=== PATIENT | male | born 1960 | race Caucasian/White ===

== ENCOUNTER 2018-11-07 18:16 | Emergency (ER) | payer SELFPAY ==
[~2018-11-07 18:16] MED LIST: ISOVUE-370 76%-LOCM 1 ML ONE
[2018-11-07 18:59] LABS: Mean Corpuscular HGB CONC 32.8 g/dL (32.0-36.0); Mean Corpuscular Hemoglobin 30.3 pg (27.0-31.0); Mean Corpuscular Volume 92.3 fL (78.0-98.0); Mean Platelet Volume 6.6 fL (7.4-10.4); Platelet Count 198 thou/uL (130-400); RBC Distribution Width 11.7 % (11.5-14.5); Red Blood Cell (RBC) Count 4.64 mill/uL (4.70-6.10); White Blood Cell (WBC) Count 16.7 thou/uL (4.8-10.8)
[2018-11-07 19:15] LABS: Band 20 % (5-11); Lymphocytes 2 % (21-51); MDiff Complete? YES; Monocytes 5 % (0-10); Neutrophil 73 % (42-75); Platelet Morphology Comment Appears Adequate; RBC Morphology Normal; Toxic Granulation SLIGHT; Vacuoles SLIGHT
[2018-11-07 19:17] LABS: ALT (SGPT) 74 U/L (8-55); AST (SGOT) 112 U/L (5-34); Albumin 3.7 g/dL (3.5-5.0); Alkaline Phosphatase 164 U/L (40-150); Anion Gap 12 mmol/L (10-20); BUN (Urea Nitrogen) 8 mg/dL (8.4-25.7); Bilirubin, Total 2.5 mg/dL (0.2-1.2); Calc. Creatinine Clearance 0 mL/min (70-130); Calcium 9.1 mg/dL (7.8-10.44); Carbon Dioxide 25 mmol/L (22-29); Chloride 101 mmol/L (98-107); Estimated GFR-MDRD Greater than 90; Globulin 3.5 g/dL (2.4-3.5); Glucose 116 mg/dL (70-105); Potassium 3.5 mmol/L (3.5-5.1); Protein, Total 7.2 g/dL (6.0-8.3); Sodium 134 mmol/L (136-145)
--- NOTE | 2018-11-07 20:07 | CT ---
CT Abdomen Pelvis W Con: 11/07/2018 7:23 PM CLINICAL INFORMATION: Nausea and vomiting COMPARISON: None. TECHNIQUE: Multiple contiguous axial images were obtained and a CT of the abdomen and pelvis with IV contrast. Oral contrast was administered. Coronal reformats were performed. FINDINGS: Lower Chest: Granulomatous changes in the right lung base. Abdomen: Liver: Multiple calcified granulomas. Bile Ducts: Normal caliber. Gallbladder: No calcified gallstones. Normal caliber wall. Pancreas: within normal limits. Spleen: Multiple calcified granulomas. Adrenals: within normal limits. Kidneys: within normal limits. Pelvis: Reproductive Organs: No pelvic masses. Ureters: within normal limits. Bladder: within normal limits. Peritoneum: No ascites or free air, no fluid collection. Bowel: The small bowel is normal in caliber. Moderate stool retention is seen in the rectal vault. Mesentery and Retroperitoneum: No enlarged mesenteric or retroperitoneal lymph nodes. Vessels: Atherosclerotic calcifications. Abdominal Wall: Large 12 cm ventral hernia containing one wall of nonobstructed colon. Bones: Degenerative changes in the spine. IMPRESSION: 1. No evidence of acute intraabdominal\pelvic abnormality. 2. Moderate stool retention in the rectal vault. 3. Ventral hernia
[2018-11-07 22:21] LABS: Bilirubin Small (Negative); Blood, Urine Negative (Negative); Clarity CLEAR (Clear); Glucose, Urine (Dipstick) Negative (Negative); Leukocyte Negative (Negative); Nitrite Negative (Negative); Protein, Urine (Dipstick) Negative (Neg-Trace)
[2018-11-07 22:22] LABS: Specific Gravity, Urine Greater than 1.060 (1.002-1.036)
[2018-11-07] MEDS ORDERED: diphenhydrAMINE 25 MG CAP ONE (22:22)
== END 2018-11-08 00:32 | disposition home or self-care (01) ==
LOC: ERS 18:16
DX: R74.8 Abnormal levels of other serum enzymes (principal); F41.9 Anxiety disorder, unspecified; F32.9 Major depressive disorder, single episode, unspecified; F17.210 Nicotine dependence, cigarettes, uncomplicated; I25.2 Old myocardial infarction; I10 Essential (primary) hypertension; Z79.899 Other long term (current) drug therapy; Z79.82 Long term (current) use of aspirin; Z79.891 Long term (current) use of opiate analgesic
CPT/HCPCS: 36415; 74177; 80053; 81003; 85025; 94760; Q0163; Q9966

== ENCOUNTER 2018-11-12 17:32 | Inpatient (IN) | payer SELFPAY ==
[2018-11-12 18:07] LABS: #Lymphocytes 0.7 thou/uL (1.20-3.40); #Monocytes 0.5 thou/uL (0.11-0.59); #Neutrophils 7.3 thou/uL (1.40-6.50); %Basophils 0.1 % (0.0-1.0); %Eosinophils 0.1 % (0.0-10.0); %Lymphocytes 8.4 % (21.0-51.0); %Monocytes 6.1 % (0.0-10.0); %Neutrophils 85.4 % (42.0-75.0); Hemoglobin 14.4 g/dL (14.0-18.0); Mean Corpuscular HGB CONC 33.4 g/dL (32.0-36.0); Mean Corpuscular Hemoglobin 30.3 pg (27.0-31.0); Mean Corpuscular Volume 90.9 fL (78.0-98.0); Mean Platelet Volume 6.7 fL (7.4-10.4); Platelet Count 175 thou/uL (130-400); RBC Distribution Width 11.6 % (11.5-14.5); Red Blood Cell (RBC) Count 4.73 mill/uL (4.70-6.10); White Blood Cell (WBC) Count 8.6 thou/uL (4.8-10.8)
[2018-11-12 18:30] LABS: ALT (SGPT) 73 U/L (8-55); AST (SGOT) 118 U/L (5-34); Albumin 3.7 g/dL (3.5-5.0); Alkaline Phosphatase 164 U/L (40-150); Anion Gap 16 mmol/L (10-20); BUN (Urea Nitrogen) 7 mg/dL (8.4-25.7); Bilirubin, Total 4.3 mg/dL (0.2-1.2); Calc. Creatinine Clearance 0 mL/min (70-130); Calcium 9.1 mg/dL (7.8-10.44); Carbon Dioxide 23 mmol/L (22-29); Chloride 101 mmol/L (98-107); Estimated GFR-MDRD Greater than 90; Globulin 3.5 g/dL (2.4-3.5); Glucose 97 mg/dL (70-105); Lipase 18 U/L (8-78); Protein, Total 7.2 g/dL (6.0-8.3); Sodium 137 mmol/L (136-145)
[2018-11-12] MEDS ORDERED: Morphine 4 MG/ML VIAL ONE ×2 (18:37→20:56)
--- NOTE | 2018-11-12 19:47 | ULT ---
ULTRASOUND ABDOMEN: (RIGHT UPPER QUADRANT) DATE: 11/12/2018 HISTORY: 58-year-old male with nausea, vomiting, and abdominal pain FINDINGS: Gallbladder:Distended. Contains sludge. No gallstone identified. No mural thickening, pericholecystic fluid, or sonographic Dasilva sign. Common duct: Dilated to 11 mm caliber. In retrospect, on CT of 11/07/2018, there is an approximately 1 cm soft tissue density mass within the inferior aspect of the common bile duct lumen. This could either represent a noncalcified gallstone (choledocholithiasis), or less likely sludge ball or neopla sm. Liver:Parenchymal echogenicity normal. Diffuse mild dilation of intrahepatic biliary radicles. Pancreas:Completely obscured by shadowing from bowel gas. Right kidney:No hydronephrosis IMPRESSION: evidence for partial obstruction of distal common bile duct, probably with choledocholithiasis
[2018-11-12] MEDS ORDERED: Levofloxacin 500 mg/D5W 100 ml Premix Bag ONE (20:56)
[2018-11-12] MEDS ORDERED: Lorazepam 2 MG/ML VIAL SLOW IVP PRN (22:37)
[2018-11-12] MEDS ORDERED: hydrALAZINE 20 MG/ML VIAL SLOW IVP PRN (22:37)
[2018-11-12] MEDS ORDERED: Ondansetron PF 4 MG/2 ML Vial IVP PRN (22:37)
[2018-11-12] MEDS ORDERED: Ondansetron ODT 4 MG TAB PO PRN (22:37)
[2018-11-12] MEDS ORDERED: Fleet Enema 133 ML BOT PR PRN (22:42)
[2018-11-12] MEDS ORDERED: Ketorolac Tromethamine 30 MG/ML VIAL IVP PRN (22:48)
[2018-11-12] MEDS ORDERED: Acetaminophen 1,000 MG in Premix Bag 1 BAG IVPB PRN (23:15)
[2018-11-12] MEDS ORDERED: Sodium Chloride 0.9% (PF) 10 ML VIAL FS PRN (23:21)
--- NOTE | 2018-11-12 23:25 | RAD ---
RADIOGRAPH CHEST 1 VIEW: DATE: 11/12/2018 HISTORY: 58-year-old male for preoperative clearance FINDINGS: There is no airspace density, pulmonary edema, or pneumothorax. The lateral costophrenic angles are n ot effaced. There are sternotomy wires. The cardiac shadow is obscured inferior to the elevated left hemidiaphragm. IMPRESSION: No acute pulmonary findings.
--- NOTE | 2018-11-12 23:27 | HP ---
HISTORY OF PRESENT ILLNESS: Benito Bond is a 58-year-old male, recently moved from [place]. He lives with family. He has left hemiparesis from previous stroke and is nonambulatory, although he transfers independently to wheelchair. He does not use a walker or a cane. He is essentially nonambulatory except able to transfer independently. He has ongoing tobacco use, half pack a day. For the past week, he has been experiencing upper abdominal pain, nausea, and vomiting. The patient had a CAT scan of the abdomen and pelvis on November 07, 2018, as an outpatient and aside from retained stool in the rectum, there were no significant findings. Bile duct caliber was recorded as normal. This study was ordered by Dr. Saima Najera. On that same day, he had labs demonstrated a bilirubin of 2.5. Today, his bilirubin is 4.3. Alkaline phosphatase today is 164 and was 164 on 11/07/2018, the day of his CAT scan. The patient underwent a gallbladder ultrasound noting gallstones and 11 mm bile duct. Acknowledging this, the CAT scan was re-read by Dr. Suresh Pratt, and choledocholithiasis noted on his CAT scan and his CAT scan in retrospection. ALLERGIES: NONE. SOCIAL HISTORY: Tobacco 1/2 pack per day more or less. Alcohol, none. MEDICATIONS: Medications for blood pressure, although medications not reconciled. Medications on the ER record include; 1. Celexa 10 mg a day. 2. Prilosec 10 mg a day. 3. Amitriptyline 10 mg a day. 4. Aspirin 81 mg a day. 5. Plavix 75 mg a day. 6. Lisinopril 10 mg a day. 7. Finasteride 5 mg a day. 8. Metoprolol 25 mg a day. 9. Protonix 40 mg a day. 10. Extended release morphine tablets 30 mg twice a day. 11. Gabapentin 300 mg 3 times a day. 12. Carafate 10 mL orally 4 times a day. 13. Flomax 0.4 mg a day. 14. [place] 5/325 t.i.d. as needed. 15. Lactulose 10 g, 15 mL orally 3 times a day. PAST SURGICAL HISTORY: Coronary artery bypass grafting in 2013 after myocardial infarction performed in [place]. He has not had any cardiology follows since that time. Apparently, he had a stroke with left hemiparesis in 2013, had a PEG tube suffering dislodgement, peritonitis requiring laparotomy in midline. During the hospitalization, he required a tracheostomy. He has a ventral hernia as a consequence. Daughter reports that 6 months ago, he had a left lung what sounds to be a decortication. PAST MEDICAL HISTORY: Hypertension, stroke with a left hemiparesis, mobility as described above. REVIEW OF SYSTEMS: Ten-point noncontributory. Never has had a colonoscopy. Denies dyspnea, chest pain, angina. PHYSICAL EXAMINATION: VITAL SIGNS: Weight 98 kg estimated, blood pressure 112/67, heart rate 91, respirations 18, temperature 98.2 degrees. HEAD, EARS, EYES, NOSE, AND THROAT: Unremarkable. LUNGS: Clear to auscultation. No wheezing. CARDIAC: Regular rate and rhythm. ABDOMEN: Soft, tenderness in his epigastric right upper quadrant, mild. Midline ventral hernia with a wide-mouth defect. Thinned out skin overlying. Scar from the tracheostomy. EXTREMITIES: Unremarkable. Left hemiparesis. LABORATORY DATA: White count 8.6, hemoglobin 14, platelet count 175,000. ASSESSMENT AND PLAN: 1. Choledocholithiasis, cholecystitis, cholelithiasis. We would plan admission to hospital. Intravenous antibiotics overnight and fluids. N.p.o. Consult Dr. Black, Gastroenterology for ERCP Thursday morning, tomorrow morning. After ERCP on Thursday, we would probably plan laparoscopic video cholecystectomy on Thursday. 2. History of Staphylococcus empyema with probable decortication. Obtain a baseline chest x-ray. He has inhalers at home. He has ongoing tobacco abuse. Plan nebulizers perioperatively and preoperatively. 3. Stroke, immobility, left hemiparesis, independently mobile transfer. 4. Suspect chronic obstructive pulmonary disease. 5. Hypertension. 6. Coronary artery disease, stable, asymptomatic currently. Job ID: [id number]
[2018-11-12] MEDS ORDERED: Enoxaparin Sodium 40 MG/0.4 ML SYRINGE SC SCH (23:30)
[2018-11-13 00:06] VITALS: BMI 25.0
[2018-11-13] MEDS: Potassium Chloride 20 MEQ in Lactated Ringer's 1,000 ML IV SCH ×3 (00:39→15:05)
[2018-11-13] MEDS: Morphine 4 MG/ML VIAL SLOW IVP PRN ×3 (01:16→23:17)
[2018-11-13 06:09] LABS: ALT (SGPT) 64 U/L (8-55); AST (SGOT) 97 U/L (5-34); Albumin 3.1 g/dL (3.5-5.0); Alkaline Phosphatase 127 U/L (40-150); Anion Gap 16 mmol/L (10-20); BUN (Urea Nitrogen) 10 mg/dL (8.4-25.7); Calc. Creatinine Clearance 155 mL/min (70-130); Calcium 8.8 mg/dL (7.8-10.44); Carbon Dioxide 17 mmol/L (22-29); Chloride 106 mmol/L (98-107); Estimated GFR-MDRD Greater than 90; Globulin 3.3 g/dL (2.4-3.5); Glucose 96 mg/dL (70-105); Potassium 3.8 mmol/L (3.5-5.1); Protein, Total 6.4 g/dL (6.0-8.3); Sodium 135 mmol/L (136-145)
[2018-11-13] MEDS: Gabapentin 300 MG CAP PO SCH ×3 (08:28→19:33)
[2018-11-13] MEDS: Polyethylene Glycol 3350 17 GM Packet PO SCH (08:28)
[2018-11-13] MEDS: Metoprolol Tartrate 25 MG TAB PO SCH ×2 (08:28→19:37)
[2018-11-13] MEDS: Finasteride 5 MG TAB PO SCH (08:28)
[2018-11-13] MEDS: Citalopram 10 MG TAB PO SCH (08:28)
[2018-11-13] MEDS: Pantoprazole 40 MG VIAL IVP SCH (08:28)
[2018-11-13] MEDS: Morphine 2 MG/ML SYRINGE SLOW IVP PRN ×2 (08:37→15:03)
[2018-11-13] MEDS ORDERED: Fentanyl 100 MCG/2 ML VIAL ONE ×2 (11:39→14:02)
[2018-11-13] MEDS ORDERED: Indomethacin 50 MG SUPP ONE (12:08)
[2018-11-13] MEDS ORDERED: Iothalamate Meglumine 60% 50 ML VIAL FS ONE (12:21)
--- NOTE | 2018-11-13 12:57 | PRG ---
DATE OF SERVICE: 11/13/2018 SUBJECTIVE: This is a 58-year-old hospitalized with abdominal pain, abnormal LFTs. The patient has coronary artery disease and has been on Plavix. Initially, until yesterday. However, he tells he has not taken Plavix over the last 4 days, because he has been having abdominal pain and nausea He is also not taking the Lovenox in the hospital. After collecting the information with the patient, I decided to proceed with ERCP later on today. Job ID: [id number]
--- NOTE | 2018-11-13 13:41 | RAD ---
XR ERCP History: [ERCP] Comparison: None. Findings: Intraluminal filling defect is seen within the common bile duct. Impression: Intraluminal filling defects suggesting choledocholithiasis with extrahepatic biliary dil atation.
--- NOTE | 2018-11-13 19:04 | OP ---
DATE OF PROCEDURE: 11/13/2018 PROCEDURES PERFORMED: 1. Endoscopic retrograde cholangio-pancreatography with papillotomy. 2. Endoscopic retrograde cholangio-pancreatography with stone extraction with biliary balloon size 9 to 12 mm. PREOPERATIVE DIAGNOSES: Biliary obstruction, dilated common bile duct, and common bile duct stone. POSTOPERATIVE DIAGNOSES: Biliary obstruction, dilated common bile duct, and common bile duct stone. DESCRIPTION OF PROCEDURE: The patient was intubated and was given sedation by Anesthesia Department. The patient was given Indocin suppositories 100 mg before procedure. The bite block was placed. The patient was transferred from the stretcher to the fluoroscopy table. He was initially placed in the left lateral position and was turned on his stomach. A Pentax video gastroscope under direct vision passed down the oropharynx, past the GE junction into the stomach and subsequently into the descending duodenum. The papilla was identified. A cannulation was done over the guidewire selecting the common bile duct. Injection of the contrast showed dilated CBD with a large filling defect. In the very distal part of the common bile duct, . A generous papillotomy was made over the guidewire to 1.5 cm. Following the papillotomy, the papillotome was exchanged with the biliary balloon size 9 to 12 mm. The balloon was advanced into the common bile duct and was carefully withdrawn. The balloon was inflated and a large stone measuring approximately 1.5 cm was removed without difficulty. Subsequently after that cholangiogram showed no more filling defect. The stomach was decompressed and the scope removed. RECOMMENDATIONS: 1. May have clear liquid diet today. 2. Repeat LFTs tomorrow. 3. Laparoscopic cholecystectomy by Dr. Rodriguez for tomorrow. Job ID: [id number]
[2018-11-13] MEDS: Enoxaparin Sodium 40 MG/0.4 ML SYRINGE SC SCH (19:32)
[2018-11-13] MEDS: Amitriptyline HCl 10 MG TAB PO SCH (19:32)
[2018-11-13] MEDS: Lisinopril 10 MG TAB PO SCH (19:33)
[2018-11-13] MEDS: Tamsulosin HCl 0.4 MG CAP PO SCH (19:34)
--- NOTE | 2018-11-13 21:05 | PRG ---
DATE OF SERVICE: SUBJECTIVE: Benito Bond is status post ERCP with Dr. Black with stone extraction. He feels much better. He is tolerating his liquids. OBJECTIVE: VITAL SIGNS: 98.3 and 76. LUNGS: Clear to auscultation. CARDIAC: Regular rate and rhythm without murmur or gallop. ABDOMEN: Soft. ASSESSMENT: 1. Cholecystitis. 2. Choledocholithiasis. 3. Cholelithiasis. PLAN: Laparoscopic via cholecystectomy tomorrow. He understands risks and benefits and consents. Job ID: [id number]
[2018-11-14] MEDS: Morphine 4 MG/ML VIAL SLOW IVP PRN (03:20)
[2018-11-14 06:01] LABS: ALT (SGPT) 46 U/L (8-55); AST (SGOT) 56 U/L (5-34); Albumin 2.9 g/dL (3.5-5.0); Alkaline Phosphatase 97 U/L (40-150); Bilirubin, Direct 0.8 mg/dL (0.1-0.3); Bilirubin, Total 1.6 mg/dL (0.2-1.2); Protein, Total 6.1 g/dL (6.0-8.3)
[2018-11-14] MEDS: Polyethylene Glycol 3350 17 GM Packet PO SCH (07:30)
[2018-11-14] MEDS: Gabapentin 300 MG CAP PO SCH ×6 (07:30→20:18)
[2018-11-14] MEDS ORDERED: Bupivacaine HCl 0.5%/Epinephrine 1:200,000/PF 30 ml Vial ONE (07:30)
[2018-11-14] MEDS: Citalopram 10 MG TAB PO SCH (07:30)
[2018-11-14] MEDS: Pantoprazole 40 MG VIAL IVP SCH (07:30)
[2018-11-14] MEDS ORDERED: Fentanyl 100 MCG/2 ML VIAL ONE ×2 (07:49→09:25)
[2018-11-14] MEDS ORDERED: Lactated Ringer's 1,000 ML IV SCH (08:00)
[2018-11-14] MEDS ORDERED: PACU-Morphine 4MG/ML VIAL SLOW IVP PRN (08:54)
[2018-11-14] MEDS ORDERED: Promethazine HCl 25 MG/ML VIAL IM PRN (08:54)
[2018-11-14] MEDS ORDERED: Meperidine HCl/PF 25 MG/ML VIAL SLOW IVP PRN (08:54)
[2018-11-14] MEDS ORDERED: Morphine Sulfate 2 MG/ML SYRINGE SLOW IVP PRN (08:54)
[2018-11-14] MEDS ORDERED: Promethazine HCl 25 MG/ML VIAL SLOW IVP PRN (08:54)
[2018-11-14] MEDS ORDERED: Ondansetron HCl/PF 4 MG/2 ML Vial IVP PRN (08:54)
[2018-11-14] MEDS ORDERED: HYDROmorphone 2 MG/ML VIAL SLOW IVP PRN (08:54)
[2018-11-14] MEDS ORDERED: Acetaminophen 500 MG TAB PO PRN (09:28)
[2018-11-14] MEDS ORDERED: traMADol HCl 50 MG TAB PO PRN ×2 (09:28)
[2018-11-14] MEDS ORDERED: Ibuprofen 600 MG TAB PO PRN (09:29)
--- NOTE | 2018-11-14 11:01 | PRG ---
DATE OF SERVICE: 11/14/2018 SUBJECTIVE: This is a 58-year-old male hospitalized with abdominal pain and findings of gallstones and also common bile duct stone. He had an ERCP with papillotomy yesterday and had a large stone removed. He has done well overnight. He is tolerating diet. Abdominal pain has markedly improved. Liver function tests are coming back to us normal. Bilirubin is down to 1.6, AST 56, ALT 46, alkaline phosphatase 97. His abdomen pain has markedly improved. He appears very comfortable. PHYSICAL EXAMINATION: VITAL SIGNS: Afebrile. Pulse is 70, blood pressure is 99/57. HEENT: He is mildly icteric. CARDIOVASCULAR: Within normal limits. LUNGS: Within normal limits. ABDOMEN: Soft. Abdomen is nontender. He has a large incisional hernia. PLAN: 1. We will sign off from today. 2. laparoscopic cholecystectomy by Dr. Rodriguez today. Job ID: [id number]
[2018-11-14] MEDS: Metoprolol Tartrate 25 MG TAB PO SCH ×2 (12:05→20:17)
--- NOTE | 2018-11-14 12:59 | DIS ---
DATE OF ADMISSION: 11/12/2018 DATE OF DISCHARGE: 11/14/2018 DISCHARGE DIAGNOSES: 1. Choledocholithiasis, cholecystitis, cholelithiasis, prior stroke with left hemiparesis, nonambulatory, but is able to transfer independently. 2. Two pack-a-day tobacco abuse. 3. Large incisional hernia from prior PEG tube that became dislodged requiring laparotomy. 4. History of tracheostomy. PROCEDURES THIS HOSPITALIZATION: CT scan of the abdomen and pelvis. Ultrasound of the gallbladder. Consultation, Dr. Black. ERCP sphincterotomy, Thursday, yesterday, followed by laparoscopic cholecystectomy today. His port sites are able to be placed around the incisional hernia defect. There were no adhesions present, visualized laparoscopically. Hernia defect is very large and there are no plans to repair this. HISTORY: A 58-year-old male patient, prior history of stroke with a residual left hemiparesis, nonambulatory, but is able to transfer. He is moved from [place] locally close to the family and lives with a family member. He transfers independently. He smokes 2 pack a day. He has a past history of tracheostomy, PEG tube after a right hemispheric stroke leaving him with a permanent left hemiparalysis. He suffered dislodgement of his PEG tube, requiring laparotomy, abdominal washout, and developed a large incisional hernia. He reports with abdominal pain, imaging and liver function tests reflective of choledocholithiasis, cholelithiasis, cholecystitis. Dr. Black consulted. He underwent ERCP, sphincterotomy, Thursday, yesterday. Today, Thursday, he underwent laparoscopic cholecystectomy and discharged home postoperatively to resume his home medications. He was advised to stop his hydrocodone, advised probably his Protonix and sucralfate are not necessary as he would be treated for peptic ulcer disease and instead he has choledocholithiasis, cholecystitis, and cholelithiasis. Tobacco cessation encouraged. Sent home with Ultram p.r.n. pain. Tylenol and Motrin p.r.n. pain. Follow up in my office in 2 to 3 weeks. Diet and activity as tolerated. Resume his home medications, albuterol inhalers, Elavil, citalopram, finasteride, gabapentin, lisinopril, metoprolol, MiraLAX, Flomax, p.r.n. Tylenol, Motrin, Ultram for postoperative pain. Diet and activity as tolerated. No lifting restrictions. May shower at bathing time with open wounds. Job ID: [id number]
[2018-11-14] MEDS: Sucralfate 1 GM/10 ML UDCUP PO SCH ×3 (13:15→20:18)
[2018-11-14] MEDS: HYDROcodone/Acetaminophen 5/325 mg Tablet PO SCH ×2 (13:25→20:14)
[2018-11-14] MEDS: Tamsulosin HCl 0.4 MG CAP PO SCH (20:13)
[2018-11-14] MEDS: Amitriptyline HCl 10 MG TAB PO SCH (20:15)
[2018-11-14] MEDS: Enoxaparin Sodium 40 MG/0.4 ML SYRINGE SC SCH (20:16)
[2018-11-14] MEDS: Lisinopril 10 MG TAB PO SCH (20:16)
[2018-11-14] MEDS ORDERED: Metoprolol Tartrate 25 MG TAB PO SCH (21:00)
[2018-11-14] MEDS ORDERED: Morphine ER 30 MG TAB PO SCH (21:00)
[2018-11-14 21:02] VITALS: BP 134/71; TEMP 98.3
[2018-11-15] MEDS ORDERED: Tamsulosin HCl 0.4 MG CAP PO SCH (09:00)
[2018-11-15] MEDS ORDERED: Aspirin 81 mg Enteric Coated Tablet PO SCH (09:00)
[2018-11-15] MEDS ORDERED: Citalopram 10 MG TAB PO SCH (09:00)
[2018-11-15] MEDS ORDERED: Clopidogrel Bisulfate 75 MG TAB PO SCH (09:00)
[2018-11-15] MEDS ORDERED: Finasteride 5 MG TAB PO SCH (09:00)
[2018-11-15] MEDS ORDERED: Amitriptyline HCl 10 MG TAB PO SCH (09:00)
[2018-11-15] MEDS ORDERED: Lisinopril 10 MG TAB PO SCH (09:00)
--- NOTE | 2018-11-15 09:02 | CON ---
DATE OF CONSULTATION: 11/13/2018 REASON FOR CONSULTATION: Abdominal pain, nausea, CAT scan and sonogram showing dilated CBD and gallstones. HISTORY OF PRESENT ILLNESS: This is a 58-year-old male with a complicated medical history. The patient has had a coronary artery bypass grafting in 2013, in [place]. Subsequently, he moved to [place], near [place]. The patient apparently had a stroke, and he is paralyzed on the left side. The patient has had a tracheostomy after the stroke and also had a PEG tube placement. Apparently, he had some leakage from the PEG tube laparotomy. He did also have a large ventral hernia subsequently. The patient moved back to [place] recently. He does not have a primary care doctor or a instrument tester. Since the bypass surgery, he has done very well. He has no chest pain. No palpitation, dyspnea, orthopnea, etc. The patient developed abdominal pain a couple of days ago. The pain is over the epigastric area, periumbilical area, and also over the left upper quadrant. He had nausea. No fever. He had an abdominal CAT scan done, showed no pathology, but the CAT scan read by Suresh Pratt MD. The abdominal sonogram showed dilation of the common bile duct and filling defect in the common bile duct. Liver function tests are also elevated. He is also jaundiced. Also because of gallstones and also choledocholithiasis with obstructive liver function tests. This morning, he feels a little bit better, but continues to have abdominal pain. The pain is not as intense as before. He has no nausea. No vomiting. No fever. He has no relevant history. ALLERGIES: NONE. SOCIAL HISTORY: The patient smokes about 8 cigarettes per day. He does not drink alcohol at the present time. MEDICAL ILLNESSES: 1. Coronary artery disease, status post coronary artery bypass grafting in 2013. 2. Status post CVA with left-sided hemiplegia, and he is not ambulatory. 3. Tracheostomy with subsequent closure. 4. PEG tube placement with leakage and peritonitis and laparotomy later on. 5. Depression. 6. Acid reflux. MEDICATIONS: Medication list reviewed, which included: 1. Celexa. 2. Prilosec. 3. Amitriptyline. 4. Aspirin. 5. Plavix. 6. Lisinopril. 7. Finasteride. 8. Metoprolol. 9. Protonix. 10. Morphine 30 mg twice a day, ER. 11. Gabapentin. 12. Carafate. 13. Flomax. 14. [place]. 15. Lactulose. REVIEW OF SYSTEMS: Ten-point systems review is remarkable for: 1. Abdominal pain and nausea. 2. History of constipation, takes lactulose. 3. Poor mobility due to stroke and basically confined to bed and wheelchair. PHYSICAL EXAMINATION: GENERAL: Appears very comfortable. He is awake, alert, and oriented to time, place, and person. He is jaundiced. VITAL SIGNS: Afebrile. Pulse is 90, blood pressure 122/60. NECK: Supple. No adenitis or thyromegaly noted. CARDIOVASCULAR: First and second heart sounds are normal. LUNGS: Clear to auscultation. ABDOMEN: Soft and mildly distended. He has extensive scarring over the epigastric area, periumbilical area from previous surgery. He has a large ventral hernia. He is tender over the upper quadrant epigastric area and left upper quadrant. There is no rebound or guarding. Bowel sounds are normal. EXTREMITIES: He is completely paralyzed on the left side. LABORATORY DATA: CBC; WBC 8600, hemoglobin is 14.4, hematocrit 43, MCV 90.9, platelet count is 175,000, polymorphs 85, lymphocytes 8. Chemistry; normal Chem-7, BUN is 10, creatinine 0.61. Bilirubin has gone up from 4.3 to 6; AST 118 on admission, today 97; ALT 73, down to 64; alkaline phosphatase 164, down to 127; albumin 3.7. The patient had a sonogram, which shows dilation of the CBD to 11 mm. There is soft tissue density in the common bile duct, probably represents gallstones. The patient's gallbladder shows some sludge, but no dominant stone seen. CLINICAL IMPRESSION: 1. Abdominal pain, nausea, findings of common bile duct obstruction. Patient most likely has retained stone. The patient's LFTs are elevated. The patient's abdominal pain is better today. Based on the information, I believe he has common bile duct obstruction . 2. Status post coronary artery bypass grafting in 2013. 3. Hypertension. 4. Status post cerebrovascular accident with residual left-sided weakness. 5. BPH. PLAN: ERCP with sphincterotomy and stone extraction. I did meet with Mr. Oliver explaining about the procedure in detail and the risks like bleeding, perforation, and sometimes pancreatitis, etc. My plan was for ERCP later on today, but after finding he has been on Plavix until today, I am putting ERCP off today. I will discuss with Dr. Rodriguez, and I may defer the in the next couple of days. Job ID: [id number]
--- NOTE | 2018-11-15 15:06 | OP ---
DATE OF PROCEDURE: 11/14/2018 PREOPERATIVE DIAGNOSES: Choledocholithiasis, cholecystitis, cholelithiasis, prior stroke, left hemiparesis, nonambulatory, ongoing two pack-a-day tobacco abuse, large incisional hernia from previous PEG tube malfunction, laparotomy, status post endoscopic retrograde cholangiopancreatography, sphincterotomy by Dr. Black yesterday. Bilirubin dropped from 6 to 1.6 overnight. POSTOPERATIVE DIAGNOSES: Choledocholithiasis, cholecystitis, cholelithiasis, prior stroke, left hemiparesis, nonambulatory, ongoing two pack-a-day tobacco abuse, large incisional hernia from previous PEG tube malfunction, laparotomy, status post endoscopic retrograde cholangiopancreatography, sphincterotomy by Dr. Black yesterday. Bilirubin dropped from 6 to 1.6 overnight. PROCEDURE PERFORMED: Laparoscopic video cholecystectomy. ANESTHESIA: General, local 0.5% Marcaine with epinephrine 30 mL. DESCRIPTION OF PROCEDURE: The patient was taken to the operating room, where under general anesthesia, abdomen was prepared with ChloraPrep and draped in routine fashion. Local anesthetic was infiltrated in the skin and subcutaneous tissue about each port site. 0.5% Marcaine with epinephrine was used, total volume used. A right subcostal incision was made, midclavicular and anterior axillary line, and 5 port was placed after the Veress needle, insufflated pneumoperitoneum to 15 mmHg. Video laparoscope was introduced. Right subxiphoid incision was made and 11 port placed. In the right mid lateral abdomen away from the incisional hernia, 5 port placed under direct visualization. There were no adhesions present. There was a very large mouth incisional hernia, 10 cm in diameter. The gallbladder fundus was grasped at the cephalad. Liver appeared to be normal. Infundibulum was grasped and reflected laterally. Cystic artery and duct dissected free. Critical view was obtained. Cystic artery and duct doubly clipped proximally, divided. Gallbladder dissected free from liver bed, obtaining good hemostasis prior to division of the final peritoneal attachments. Gallbladder and stones were removed and submitted to Pathology. Good hemostasis was ensured in the liver bed. Irrigant and pneumoperitoneum evacuated. All instruments were removed and all skin incisions were approximated with interrupted subdermal 4-0 Monocryl and [place] glue applied. Job ID: [id number]
== END 2018-11-14 21:58 | disposition home or self-care (01) | DRG 418 ==
LOC: ERS 17:32 → T4-A 20:26 → OBSVTOIN 20:26
PROVIDERS: ADMIT Specialist; ATTEND Specialist
PROC: 0FC98ZZ Extirpation of Matter from Common Bile Duct, Via Natural or Artificial Opening Endoscopic (ICD-10-PCS; 2018-11-13)
PROC: 0FT44ZZ Resection of Gallbladder, Percutaneous Endoscopic Approach (ICD-10-PCS; principal; 2018-11-14)
DX: K80.61 Calculus of gallbladder and bile duct with cholecystitis, unspecified, with obstruction (principal); I69.354 Hemiplegia and hemiparesis following cerebral infarction affecting left non-dominant side; I10 Essential (primary) hypertension; I25.10 Atherosclerotic heart disease of native coronary artery without angina pectoris; K43.2 Incisional hernia without obstruction or gangrene; F17.210 Nicotine dependence, cigarettes, uncomplicated; I25.2 Old myocardial infarction; Z79.82 Long term (current) use of aspirin; Z79.02 Long term (current) use of antithrombotics/antiplatelets; Z95.1 Presence of aortocoronary bypass graft; Z93.0 Tracheostomy status
CPT/HCPCS: 36415; 71045; 74330; 76705; 80053; 80076; 83690; 84484; 85025; 88304; 93005; 94640; 96361; 96365; 96375; 96376; C9113; J0670; J1610; J1650; J1885; J1956; J2270; J3010; J3480; J7120; J7620; Q9961

== ENCOUNTER 2018-11-27 17:57 | Emergency (ER) | payer MEDICAID, SELFPAY ==
[2018-11-27 18:48] LABS: #Basophils 0.1 thou/uL (0.0-0.2); #Eosinphils 0.1 thou/uL (0.0-0.7); #Lymphocytes 3.6 thou/uL (1.20-3.40); #Monocytes 1.1 thou/uL (0.11-0.59); #Neutrophils 5.7 thou/uL (1.40-6.50); %Basophils 0.5 % (0.0-1.0); %Eosinophils 0.6 % (0.0-10.0); %Lymphocytes 33.8 % (21.0-51.0); %Monocytes 10.8 % (0.0-10.0); %Neutrophils 54.3 % (42.0-75.0); Hemoglobin 13.9 g/dL (14.0-18.0); Mean Corpuscular HGB CONC 33.6 g/dL (32.0-36.0); Mean Corpuscular Hemoglobin 30.1 pg (27.0-31.0); Mean Corpuscular Volume 89.6 fL (78.0-98.0); Mean Platelet Volume 6.6 fL (7.4-10.4); Platelet Count 221 thou/uL (130-400); RBC Distribution Width 11.5 % (11.5-14.5); Red Blood Cell (RBC) Count 4.61 mill/uL (4.70-6.10); White Blood Cell (WBC) Count 10.6 thou/uL (4.8-10.8)
[2018-11-27 18:53] LABS: PTT 29.3 SEC (22.9-36.1); Prothrombin Time 13.5 SEC (12.0-14.7)
[2018-11-27 19:10] LABS: ALT (SGPT) 14 U/L (8-55); AST (SGOT) 25 U/L (5-34); Albumin 3.7 g/dL (3.5-5.0); Alkaline Phosphatase 73 U/L (40-150); Anion Gap 10 mmol/L (10-20); BUN (Urea Nitrogen) 5 mg/dL (8.4-25.7); Bilirubin, Total 0.7 mg/dL (0.2-1.2); Calc. Creatinine Clearance 0 mL/min (70-130); Calcium 9.3 mg/dL (7.8-10.44); Carbon Dioxide 26 mmol/L (22-29); Chloride 102 mmol/L (98-107); Estimated GFR-MDRD Greater than 90; Globulin 3.8 g/dL (2.4-3.5); Glucose 76 mg/dL (70-105); Potassium 3.4 mmol/L (3.5-5.1); Protein, Total 7.5 g/dL (6.0-8.3); Sodium 135 mmol/L (136-145)
--- NOTE | 2018-11-27 20:08 | ULT ---
US Venous Doppler Lt Unilat History: Lower extremity edema. Pain. Comparison: None. Findings: Real-time grayscale, color, and spectral analysis of the left lower extremely venous system was performed. The common femoral, femoral, proximal portions greater saphenous and deep femoral veins as well as the popliteal and posterior tibial veins were interrogated. Normal flow, augmentation, and compression. Impression: No deep venous thrombosis.
[2018-11-27] MEDS ORDERED: HYDROcodone/Acetaminophen 10/325 mg Tablet ONE (20:13)
[2018-11-27] MEDS ORDERED: traMADol HCl 50 MG TAB ONE (20:15)
== END 2018-11-27 23:43 | disposition home or self-care (01) ==
LOC: ERS 17:57
DX: M79.605 Pain in left leg (principal); F41.9 Anxiety disorder, unspecified; F32.9 Major depressive disorder, single episode, unspecified; Z79.899 Other long term (current) drug therapy; Z79.82 Long term (current) use of aspirin; Z86.73 Personal history of transient ischemic attack (TIA), and cerebral infarction without residual deficits; I25.2 Old myocardial infarction; F17.210 Nicotine dependence, cigarettes, uncomplicated
CPT/HCPCS: 36415; 80053; 85025; 85610; 85730

== ENCOUNTER 2018-11-29 20:21 | Emergency (ER) | payer MEDICAID ==
[2018-11-29 20:54] LABS: #Basophils 0.1 thou/uL (0.0-0.2); #Eosinphils 0.1 thou/uL (0.0-0.7); #Lymphocytes 3.6 thou/uL (1.20-3.40); #Monocytes 1.2 thou/uL (0.11-0.59); #Neutrophils 5.1 thou/uL (1.40-6.50); %Basophils 0.9 % (0.0-1.0); %Eosinophils 0.7 % (0.0-10.0); %Lymphocytes 35.6 % (21.0-51.0); %Neutrophils 50.8 % (42.0-75.0); Hemoglobin 13.8 g/dL (14.0-18.0); Mean Corpuscular HGB CONC 33.9 g/dL (32.0-36.0); Mean Corpuscular Hemoglobin 30.2 pg (27.0-31.0); Mean Corpuscular Volume 89.2 fL (78.0-98.0); Mean Platelet Volume 6.7 fL (7.4-10.4); Platelet Count 204 thou/uL (130-400); RBC Distribution Width 11.5 % (11.5-14.5); Red Blood Cell (RBC) Count 4.57 mill/uL (4.70-6.10); White Blood Cell (WBC) Count 10.1 thou/uL (4.8-10.8)
--- NOTE | 2018-11-29 21:07 | CT ---
CT head noncontrast HISTORY: Fall. Head injury. FINDINGS: No comparison. There is no evidence of acute intracranial hemorrhage or infarct. Large area of encephalomalacia throughout the right cerebral hemisphere and postoperative changes of the right cranium are apparent with associated dilatation of the right lateral ventricle. No mass effect or shift of midline structures. Visualized paranasal sinuses remain well aerated. Postoperative changes left maxillary sinus partially visualized. IMPRESSION: Chronic-type findings as above. No acute intracranial abnormalities are demonstrated.
--- NOTE | 2018-11-29 21:10 | CT ---
CT cervical spine noncontrast HISTORY: Fall. Neck injury. FINDINGS: Vertebral body heights are maintained. Disc space narrowing most pronounced at the C5-6 and C6-7 levels. Prominent osteophytosis throughout the vertebral bodies and facets, most pronounced posteriorly to the right at the C5-6 level. Cervicothoracic junction is intact. No acute fracture or dislocation. IMPRESSION: Prominent degenerative changes of the cervical spine. No acute osseous abnormalities are demonstrated.
[2018-11-29 21:16] LABS: ALT (SGPT) 15 U/L (8-55); AST (SGOT) 24 U/L (5-34); Albumin 3.7 g/dL (3.5-5.0); Alkaline Phosphatase 79 U/L (40-150); Anion Gap 13 mmol/L (10-20); BUN (Urea Nitrogen) 8 mg/dL (8.4-25.7); Bilirubin, Total 0.6 mg/dL (0.2-1.2); CK (CPK) 37 U/L (30-200); Calc. Creatinine Clearance 0 mL/min (70-130); Calcium 9.2 mg/dL (7.8-10.44); Carbon Dioxide 24 mmol/L (22-29); Chloride 104 mmol/L (98-107); Estimated GFR-MDRD Greater than 90; Globulin 3.6 g/dL (2.4-3.5); Glucose 74 mg/dL (70-105); Potassium 3.2 mmol/L (3.5-5.1); Protein, Total 7.3 g/dL (6.0-8.3); Sodium 138 mmol/L (136-145)
--- NOTE | 2018-11-29 21:22 | CT ---
CT OF THE THORACIC SPINE WITHOUT CONTRAST: COMPARISON: None. HISTORY: Upper back pain after a fall just prior to arrival. TECHNIQUE: Multiple contiguous axial images were obtained in a CT of the thoracic spine without contrast. Sagit elayne and coronal reformats were performed. FINDINGS: The vertebral bodies demonstrate normal height and alignment without fracture or subluxation. Small osteophytes are seen in the lower thoracic spine. No prevertebral soft tissue swelling is seen. The visualized posterior ribs show no evidence of fracture. The patient is status post sternotomy. There appears to be a fracture of the medial aspect of the left clavicle of uncertain age. Calcified granulomas are seen in the right lung base. There are calcified hilar and mediastinal lymph nodes. Calcifications are seen in the coronary arteries and aorta. IMPRESSION: 1. No evidence of acute osseous abnormality of the thoracic spine. 2. Age-indeterminate fracture of the medial aspect of the left clavicle. POS: [facility]
--- NOTE | 2018-11-29 21:27 | CT ---
CT LUMBAR SPINE WITHOUT CONTRAST: COMPARISON: None. HISTORY: Fall just prior to arrival with back pain. TECHNIQUE: Multiple contiguous axial images were obtained in a CT of the lumbar spine without contrast. Sagitta l and coronal reformats were performed. FINDINGS: The vertebral bodies demonstrate normal height and alignment without fracture or subluxation. Degene rative changes are seen throughout the lumbar spine. There is intervertebral disk space narrowing at L5-S1 with vacuum phenomenon at this level. There is a posterior disk-osteophyte complex at L5-S1 c ausing moderate central canal stenosis. Atherosclerotic calcifications are seen in the aorta. There is a stent within the right common iliac artery. A large amount of stool is seen in the rectal vault. IMPRESSION: 1. No evidence of acute osseous abnormality of the lumbar spine. 2. Degenerative changes of the lumbar spine as above. 3. Large stool retention in the rectal vault. POS: [facility]
[2018-11-29] MEDS ORDERED: Ketorolac Tromethamine 30 MG/ML VIAL ONE (22:00)
[2018-11-29] MEDS ORDERED: Potassium Chloride 20 MEQ TAB ONE (22:00)
[2018-11-29 22:07] LABS: Bilirubin Negative (Negative); Blood, Urine Negative (Negative); Clarity CLEAR (Clear); Glucose, Urine (Dipstick) Negative (Negative); Leukocyte Negative (Negative); Nitrite Negative (Negative); Protein, Urine (Dipstick) Negative (Neg-Trace); Specific Gravity, Urine 1.021 (1.002-1.036)
--- NOTE | 2018-12-03 12:35 | EKG ---
Test Reason : FALL Blood Pressure : / mmHG Vent. Rate : 086 BPM Atrial Rate : 086 BPM P-R Int : 144 ms QRS Dur : 122 ms QT Int : 414 ms P-R-T Axes : 037 -12 055 degrees QTc Int : 495 ms Normal sinus rhythm Possible Left atrial enlargement Left bundle branch block Abnormal ECG Confirmed by ROSALINDA FERNANDEZ ([id number]), editor managing newspaper GILMAR ESTES ([id number]) on 12/03/2018 12:34:56 PM Referred By: JIM Confirmed By:ROSALINDA FERNANDEZ
== END 2018-11-29 23:09 | disposition home or self-care (01) ==
LOC: ERS 20:21
DX: M54.5 Low back pain (principal); M54.6 Pain in thoracic spine; I25.2 Old myocardial infarction; I10 Essential (primary) hypertension; F41.9 Anxiety disorder, unspecified; F32.9 Major depressive disorder, single episode, unspecified; F17.210 Nicotine dependence, cigarettes, uncomplicated; Z79.891 Long term (current) use of opiate analgesic; Z79.899 Other long term (current) drug therapy; Z79.82 Long term (current) use of aspirin; Z87.01 Personal history of pneumonia (recurrent); Z86.718 Personal history of other venous thrombosis and embolism; W06.XXXA Fall from bed, initial encounter
CPT/HCPCS: 36415; 70450; 72125; 72128; 72131; 80053; 81003; 82550; 84484; 85025; 87086; 93005; 96374; J1885

== ENCOUNTER 2018-11-30 12:40 | Emergency (ER) | payer MEDICAID ==
[2018-11-30 13:21] LABS: #Eosinphils 0.1 thou/uL (0.0-0.7); #Lymphocytes 3.2 thou/uL (1.20-3.40); #Monocytes 0.9 thou/uL (0.11-0.59); #Neutrophils 4.6 thou/uL (1.40-6.50); %Basophils 0.5 % (0.0-1.0); %Eosinophils 0.6 % (0.0-10.0); %Lymphocytes 36.2 % (21.0-51.0); %Monocytes 10.7 % (0.0-10.0); %Neutrophils 52.1 % (42.0-75.0); Hemoglobin 13.9 g/dL (14.0-18.0); Mean Corpuscular HGB CONC 33.2 g/dL (32.0-36.0); Mean Corpuscular Hemoglobin 29.6 pg (27.0-31.0); Mean Corpuscular Volume 89.1 fL (78.0-98.0); Mean Platelet Volume 6.6 fL (7.4-10.4); Platelet Count 216 thou/uL (130-400); RBC Distribution Width 11.5 % (11.5-14.5); Red Blood Cell (RBC) Count 4.69 mill/uL (4.70-6.10); White Blood Cell (WBC) Count 8.8 thou/uL (4.8-10.8)
[2018-11-30 13:48] LABS: ALT (SGPT) 14 U/L (8-55); AST (SGOT) 25 U/L (5-34); Albumin 3.7 g/dL (3.5-5.0); Alkaline Phosphatase 79 U/L (40-150); Anion Gap 12 mmol/L (10-20); BUN (Urea Nitrogen) 7 mg/dL (8.4-25.7); Bilirubin, Total 0.6 mg/dL (0.2-1.2); Calc. Creatinine Clearance 0 mL/min (70-130); Calcium 8.9 mg/dL (7.8-10.44); Carbon Dioxide 25 mmol/L (22-29); Chloride 105 mmol/L (98-107); Estimated GFR-MDRD Greater than 90; Globulin 3.4 g/dL (2.4-3.5); Glucose 100 mg/dL (70-105); Potassium 3.7 mmol/L (3.5-5.1); Protein, Total 7.1 g/dL (6.0-8.3); Sodium 138 mmol/L (136-145)
[2018-11-30] MEDS ORDERED: traMADol HCl 50 MG TAB ONE (15:51)
--- NOTE | 2018-12-03 12:54 | EKG ---
Test Reason : Blood Pressure : / mmHG Vent. Rate : 090 BPM Atrial Rate : 090 BPM P-R Int : 138 ms QRS Dur : 114 ms QT Int : 396 ms P-R-T Axes : 007 -30 029 degrees QTc Int : 484 ms Normal sinus rhythm Possible Left atrial enlargement Left axis deviation Anterior infarct , age undetermined Abnormal ECG Confirmed by WAYNE CAM, LOUISE ([id number]), editor house organ GILMAR ESTES ([id number]) on 12/03/2018 12:54:32 PM Referred By: Confirmed By:LOUISE BLACK MD
== END 2018-11-30 17:01 | disposition home or self-care (01) ==
LOC: ERS 12:40
DX: E86.0 Dehydration (principal); R53.1 Weakness; I25.2 Old myocardial infarction; I10 Essential (primary) hypertension; F41.9 Anxiety disorder, unspecified; F32.9 Major depressive disorder, single episode, unspecified; F17.210 Nicotine dependence, cigarettes, uncomplicated; Z79.899 Other long term (current) drug therapy; Z86.73 Personal history of transient ischemic attack (TIA), and cerebral infarction without residual deficits; Z86.718 Personal history of other venous thrombosis and embolism; Z79.891 Long term (current) use of opiate analgesic; Z79.82 Long term (current) use of aspirin
CPT/HCPCS: 36415; 80053; 84484; 85025; 93005; 96360; 96361

== ENCOUNTER 2018-12-08 17:37 | Emergency (ER) | payer MEDICAID ==
[2018-12-08 19:42] LABS: Hemoglobin 13.9 g/dL (14.0-18.0); Mean Corpuscular HGB CONC 33.6 g/dL (32.0-36.0); Mean Corpuscular Hemoglobin 29.7 pg (27.0-31.0); Mean Corpuscular Volume 88.5 fL (78.0-98.0); Mean Platelet Volume 6.8 fL (7.4-10.4); Platelet Count 197 thou/uL (130-400); RBC Distribution Width 11.9 % (11.5-14.5); Red Blood Cell (RBC) Count 4.67 mill/uL (4.70-6.10)
[2018-12-08 19:47] LABS: ALT (SGPT) 17 U/L (8-55); AST (SGOT) 37 U/L (5-34); Albumin 3.4 g/dL (3.5-5.0); Alkaline Phosphatase 75 U/L (40-150); Anion Gap 14 mmol/L (10-20); BUN (Urea Nitrogen) 16 mg/dL (8.4-25.7); Bilirubin, Total 1.1 mg/dL (0.2-1.2); Calc. Creatinine Clearance 0 mL/min (70-130); Calcium 8.9 mg/dL (7.8-10.44); Carbon Dioxide 27 mmol/L (22-29); Chloride 101 mmol/L (98-107); Estimated GFR-MDRD Greater than 90; Globulin 3.6 g/dL (2.4-3.5); Glucose 109 mg/dL (70-105); Lipase Less than 4 U/L (8-78); Magnesium 1.8 mg/dL (1.6-2.6); Potassium 3.6 mmol/L (3.5-5.1); Sodium 138 mmol/L (136-145)
[2018-12-08 19:54] LABS: Band 10 % (5-11); Lymphocytes 11 % (21-51); MDiff Complete? YES; Monocytes 4 % (0-10); Neutrophil 75 % (42-75); Platelet Morphology Comment Appears Adequate; RBC Morphology Normal
--- NOTE | 2018-12-08 20:00 | CT ---
CT Abdomen Pelvis W Con: 12/08/2018 12:00 AM CLINICAL INFORMATION: Nausea, vomiting, and diarrhea COMPARISON: 11/07/2018 TECHNIQUE: Multiple contiguous axial images were obtained and a CT of the abdomen and pelvis with IV contrast. C oronal reformats were performed. FINDINGS: Lower Chest: Atelectasis in the lung bases. Calcified granuloma and calcified right hilar lymph nodes in the right lung base. Abdomen: Liver: Air in the intrahepatic biliary tree is likely from prior sphincterotomy at the ampulla of Vat er. Multiple calcified granulomas. Bile Ducts: Normal caliber. Gallbladder: Status post cholecystectomy Pancreas: within normal limits. Spleen: Multiple calcified granulomas Adrenals: within normal limits. Kidneys: within normal limits. Pelvis: Reproductive Organs: No pelvic masses. Ureters: within normal limits. Bladder: within normal limits. Peritoneum: No ascites or free air, no fluid collection. Bowel: Normal caliber. Moderate stool is seen in the rectal vault. This is stable compared to the pre vious examination. Mesentery and Retroperitoneum: No enlarged mesenteric or retroperitoneal lymph nodes. Vessels: Atherosclerotic calcifications. Abdominal Wall: Stable laxity of the anterior abdominal wall may represent eventration or a ventral h ernia. Bones: Mild degenerative changes in the spine. IMPRESSION: 1. Moderate stool in the rectal vault 2. Ventral hernia versus eventration of the anterior abdominal wall.
[2018-12-08 22:44] LABS: Bilirubin Negative (Negative); Blood, Urine Negative (Negative); Clarity Clear (Clear); Glucose, Urine (Dipstick) Normal (Negative); Leukocyte Negative Leu/uL (Negative); Nitrite Negative (Negative); Protein, Urine (Dipstick) 20 mg/dL (Neg-Trace); RBC/HPF 0-3 HPF (0-3); Squamous Epithelial 0-3 HPF (0-3); Urobilinogen 3 mg/dL (Less than 2); WBC/HPF 0-3 HPF (0-3)
[2018-12-08 22:45] LABS: Bacteria/HPF None Seen HPF (None Seen)
--- NOTE | 2018-12-11 21:36 | EKG ---
Test Reason : TACHYCARDIA Blood Pressure : / mmHG Vent. Rate : 120 BPM Atrial Rate : 120 BPM P-R Int : 130 ms QRS Dur : 114 ms QT Int : 362 ms P-R-T Axes : 050 -11 094 degrees QTc Int : 511 ms Sinus tachycardia Possible Left atrial enlargement Incomplete left bundle branch block Abnormal ECG Confirmed by KERVIN MORGAN M.D. ([id number]), legal editor LEN LUND ([id number]) on 12/11/2018 9:35:25 PM Referred By: Confirmed By:KERVIN MORGAN M.D.
== END 2018-12-09 01:30 | disposition home or self-care (01) ==
LOC: ERS 17:37
DX: K43.9 Ventral hernia without obstruction or gangrene (principal); R11.2 Nausea with vomiting, unspecified; R19.7 Diarrhea, unspecified; I10 Essential (primary) hypertension; I25.2 Old myocardial infarction; F41.9 Anxiety disorder, unspecified; F32.9 Major depressive disorder, single episode, unspecified; F17.210 Nicotine dependence, cigarettes, uncomplicated; Z86.73 Personal history of transient ischemic attack (TIA), and cerebral infarction without residual deficits; Z79.899 Other long term (current) drug therapy; Z86.718 Personal history of other venous thrombosis and embolism; Z79.891 Long term (current) use of opiate analgesic; Z79.82 Long term (current) use of aspirin
CPT/HCPCS: 74177; 80053; 81003; 83605; 83690; 83735; 85025; 93005; 96360; 96361; Q9966

== ENCOUNTER 2018-12-21 20:11 | Emergency (ER) | payer MEDICAID ==
[2018-12-21] MEDS ORDERED: HYDROcodone/Acetaminophen 5/325 mg Tablet ONE (20:56)
[2018-12-21] MEDS ORDERED: traMADol HCl 50 MG TAB ONE (21:01)
--- NOTE | 2018-12-21 22:24 | ULT ---
EXAM: Left lower extremity venous Doppler PROVIDED CLINICAL HISTORY: Left leg pain FINDINGS: Grayscale and color Doppler sonography with spectral analysis was performed of the left common femora l, femoral, popliteal, posterior tibial, greater saphenous and profunda femoral veins. The evaluated venous structures demonstrate a normal sonographic appearance. IMPRESSION: No sonographic evidence for left lower extremity deep venous thrombosis.
== END 2018-12-22 00:21 | disposition home or self-care (01) ==
LOC: ERS 20:11
DX: M79.605 Pain in left leg (principal); I25.2 Old myocardial infarction; I10 Essential (primary) hypertension; F41.9 Anxiety disorder, unspecified; F32.9 Major depressive disorder, single episode, unspecified; F17.210 Nicotine dependence, cigarettes, uncomplicated; Z86.718 Personal history of other venous thrombosis and embolism; Z86.73 Personal history of transient ischemic attack (TIA), and cerebral infarction without residual deficits; Z79.899 Other long term (current) drug therapy; Z79.82 Long term (current) use of aspirin; Z79.891 Long term (current) use of opiate analgesic

== ENCOUNTER 2018-12-23 18:49 | Emergency (ER) | payer MEDICAID ==
--- NOTE | 2018-12-23 19:28 | RAD ---
EXAM: PA chest radiograph with 2 views left RIBS PROVIDED CLINICAL HISTORY: Chest pain COMPARISON: None FINDINGS: Cardiac and mediastinal silhouette is within normal limits. No focal consolidation, pleural fluid or pneumothorax evident. Stable elevation of the left hemidiaphragm. Volume loss and/or scarring left lung base. No evidence for displaced acute left-sided rib fracture. IMPRESSION: No evidence for an acute process.
[2018-12-23] MEDS ORDERED: Ketorolac Tromethamine 60 MG/2 ML VIAL ONE (19:30)
== END 2018-12-23 19:55 | disposition home or self-care (01) ==
LOC: ERS 18:49
DX: S22.32XA Fracture of one rib, left side, initial encounter for closed fracture (principal); F32.9 Major depressive disorder, single episode, unspecified; F41.9 Anxiety disorder, unspecified; I25.2 Old myocardial infarction; I10 Essential (primary) hypertension; F17.210 Nicotine dependence, cigarettes, uncomplicated; Z86.73 Personal history of transient ischemic attack (TIA), and cerebral infarction without residual deficits; Z86.718 Personal history of other venous thrombosis and embolism; Z79.82 Long term (current) use of aspirin; Z79.899 Other long term (current) drug therapy; W01.198A Fall on same level from slipping, tripping and stumbling with subsequent striking against other object, initial encounter
CPT/HCPCS: 96372; J1885

== ENCOUNTER 2019-01-01 17:53 | Emergency (ER) | payer MEDICAID ==
--- NOTE | 2019-01-01 19:16 | ULT ---
Venous duplex sonogram left lower extremity HISTORY: Left leg pain and edema. FINDINGS: The left common femoral vein and greater saphenous junction were evaluated along with the f emoral, deep femoral, popliteal, and posterior tibial veins. There is good color and spectral Doppler flow, compression, and augmentation. IMPRESSION: No sonographic evidence of DVT within the left lower extremity.
[2019-01-01] MEDS ORDERED: Ibuprofen 200 MG TAB ONE (19:31)
== END 2019-01-01 20:24 | disposition home or self-care (01) ==
LOC: ERS 17:53
DX: M79.605 Pain in left leg (principal); Z86.73 Personal history of transient ischemic attack (TIA), and cerebral infarction without residual deficits; I25.2 Old myocardial infarction; I10 Essential (primary) hypertension; F41.9 Anxiety disorder, unspecified; F32.9 Major depressive disorder, single episode, unspecified; F17.210 Nicotine dependence, cigarettes, uncomplicated; Z79.899 Other long term (current) drug therapy; Z79.82 Long term (current) use of aspirin